=== PATIENT | male | born 1990 | race African-American/Black ===

== ENCOUNTER 2016-06-09 04:54 | Inpatient (IN) | payer OTHER ==
--- NOTE | ~2016-06-09 | PN ---
Unit #: [id number] #: [id number] Patient: BRANDY CERDA [id number] [facility] [address] [place] [address] [id number] MR#: [id number] NAME: BRANDY CERDA ROOM: P214 Age: 25 Sex: M Admission Date: 06/09/2016 : 1990 Attending Physician: Bess Calvo M.D. Admitting Physician: Bess Calvo M.D. Primary Care Physician: Hernando Doctor Not In System [facility] PROGRESS NOTES DATE 06/11/3016 DISCUSSION Mr. Cerda is a 35-year-old, male with mood disorder and substance abuse who was seen today and chart was reviewed and case was discussed with the staff. He has been anxious, withdrawn and rather seclusive to himself and has been exhibiting some persistent depressive symptoms. Meanwhile, he has been taking medications and tolerating them fairly well. MENTAL STATUS EXAM Young male who was casually dressed with fair personal hygiene, appears to be in no acute distress or discomfort. He was awake and alert on interaction with intact orientation. His mood was anxious with congruent affect. He denies any suicidal or homicidal ideation. His insight and judgement remains slightly impaired. TREATMENT PLAN 1. We will continue him on his current treatment protocol. We will monitor his response and make further adjustments as needed. 2. We will continue to follow up. Dictated by... Henry Sifuentes/isidoro TD: 06/13/2016 04:33 JOB #: [id number] Unit #: [id number] #: [id number] Patient: BRANDY CERDA [facility] PROGRESS NOTES Page 1 of 1 X Bess Calvo MD X PROGRESS NOTE
--- NOTE | ~2016-06-09 | HP ---
Unit #: [id number] #: [id number] Patient: BRANDY CERDA [id number] [facility] [address] [place] [address] [id number] MR#: [id number] NAME: BRANDY CERDA ROOM: P214 Age: 25 Sex: M Admission Date: 06/09/2016 : 1990 Attending Physician: Bess Calvo M.D. Admitting Physician: Bess Calvo M.D. Primary Care Physician: Generic Doctor Not In System HISTORY AND PHYSICAL HISTORY OF PRESENT ILLNESS The patient is a 25-year-old male who states that he is here due to Xanax abuse. PAST MEDICAL HISTORY Significant for asthma. PAST SURGICAL HISTORY None. ALLERGIES Patient states are seasonal. SOCIAL HISTORY Positive for smoking, alcohol, Xanax and marijuana. FAMILY HISTORY Noncontributory. REVIEW OF SYSTEMS CONSTITUTIONAL: No fever or chills. HEENT: Denies any sore throat, ear pain or runny nose. CARDIOVASCULAR: Denies chest pain, irregular heart rhythm or palpitations. CHEST: Denies shortness of breath or cough. No hemoptysis. GASTROINTESTINAL: Denies nausea, vomiting, diarrhea or chronic constipation. ENDOCRINE: Denies history of increased thirst or urination. No recent significant weight loss or gain. GENITOURINARY: Denies dysuria, frequency, or hematuria. SKIN: Denies any rashes. HEMATOLOGIC: Denies history of increased bleeding or bruising. MUSCULOSKELETAL: Denies any hot, swollen joints. No generalized muscle pain. NEUROLOGIC: Denies problems with vision or speech. No frequent, severe headaches. No numbness, tingling or weakness in any extremities. Denies loss of bladder or bowel control. CURRENT MEDICATIONS None. PHYSICAL EXAMINATION GENERAL: Alert, oriented, in no acute distress. VITAL SIGNS: Temperature 98, heart rate 78, respirations 16, blood Unit #: [id number] #: [id number] Patient: BRANDY CERDA pressure 103/60. HEIGHT: 5 feet 7 inches. WEIGHT: 130 pounds. SKIN: Warm and dry without rash or lesion. Tattoos to the right and left arms, midline chest. HEENT: Normocephalic. TMs not viewed. Oral and nasal passages clear. Conjunctivae clear. PERRLA. EOMs intact. NECK: Supple without lymphadenopathy or thyromegaly. HEART: Regular rate and rhythm without murmur. LUNGS: Clear. ABDOMEN: Soft, nontender, without masses or hepatosplenomegaly. : Not done. EXTREMITIES: No evidence of cyanosis, clubbing or edema. Moves all without focal deficit. NEUROLOGICAL: Grossly within normal limits. Cranial Nerves: II: Visual cordero are intact. III, IV AND : Extraocular movements are intact. Pupils are equal, round and reactive to light. V: Facial sensation is grossly normal. VII: Facial movements and expression are normal. VIII: Auditory acuity grossly intact. IX, X: Uvula is midline. Phonation is normal. XI: Patient shrugs shoulders and turns head normally. XII: Tongue protrudes in the midline. Sensory and Motor Function: Sensory and motor sensation is grossly normal. Motor: moves all extremities well. Coordination: Gait is normal. Deep Tendon Reflexes: Intact. IMPRESSION Psychiatric admission. RECOMMENDATIONS PSYCHIATRIC: Per psychiatrist. MEDICAL: No contraindications to participate in facility's activities. MEDICAL PROGNOSIS Good. Dictated by... Vadim Gaming/bernard TD: 06/09/2016 18:53 JOB #: [id number] HISTORY AND PHYSICAL Page 1 of 1 X Keiry Marshall APR X HISTORY AND PHYSICAL
--- NOTE | ~2016-06-09 | DS ---
Unit #: [id number] #: [id number] Patient: BRANDY CERDA [id number] [facility] [address] [place] [address] [id number] I MR#: [id number] NAME: BRANDY CERDA ROOM: [facility] Age: 25 Sex: M Admission Date: 06/09/2016 : 1990 Discharge Date: 06/12/2016 Attending Physician: Bess Calvo M.D. Primary Care Physician: Generic Doctor Not In System DISCHARGE SUMMARY IDENTIFYING DATA Mr. Norwood is a 25-year-old male who was self-referred to the hospital. DISCHARGE DIAGNOSES Psychiatric: Opioid dependence, moderate and acute withdrawals; opioid-induced mood disorder. Medical: None. Stressors: Moderate psychosocial stressors. HISTORY OF PRESENT ILLNESS Please see initial psychiatric evaluation for details. PAST PSYCHIATRIC HISTORY Please see initial psychiatric evaluation for details. PAST MEDICAL HISTORY Please see initial psychiatric evaluation for details. HOSPITAL COURSE The patient was admitted to the adult chemical dependency unit at [facility] and was oriented to the hospital environment. Routine p.r.n. medications were initiated, and he was started back on his home medications and detox protocol was initiated as well. He was taking medications regularly and was seen to be showing very poor insight into his situation, constantly wanting to leave and was poorly motivated towards treatment; however, he was denying any suicidal ideations, intent, or plan and was not seen to be danger to self or anyone else and therefore, it was decided that he will be discharged home and will continue treatment on an outpatient basis. DISCHARGE MEDICATIONS None. DISCHARGE CONDITION Stable. PROGNOSIS Guarded. Dictated by... Bess Calvo M.D. Unit #: [id number] #: [id number] Patient: BRANDY CERDA IAA/modl TD: 06/12/2016 11:22 JOB #: [id number] DISCHARGE SUMMARY Page 1 of 1 X Bess Calvo MD X DISCHARGE SUMMARY
--- NOTE | ~2016-06-09 | PN ---
Unit #: [id number] #: [id number] Patient: BRANDY CERDA [id number] [facility] [address] [place] [address] [id number] MR#: [id number] NAME: BRANDY CERDA ROOM: P214 Age: 25 Sex: M Admission Date: 06/09/2016 : 1990 Attending Physician: Bess Calvo M.D. Admitting Physician: Henry Sifuentes PROGRESS NOTES DATE OF SERVICE: 06/10/2016 SUBJECTIVE Mr. Cerda is a 25-year-old male who was seen today and chart was reviewed, and case was discussed with the staff. He has been anxious, irritable, and showing poor insight into his situation and poor motivation towards sobriety. Meanwhile, he has been taking the medications and has been tolerating them fairly well. MENTAL STATUS EXAMINATION Young male who was casually dressed with fair personal hygiene, appears to be in no acute distress or discomfort. He was awake and alert on interaction with intact orientation. His mood was anxious with a congruent affect. He denies any suicidal or homicidal ideations. His insight and judgment remain slightly impaired. TREATMENT PLAN 1. We will continue him on his current treatment protocol. We will monitor his response to medications and make further adjustments as needed. 2. We will continue to follow up. Dictated by... Henry Sifuentes/niko TD: 06/11/2016 12:36 JOB #: [id number] [facility] PROGRESS NOTES Page 1 of 1 X Bess Calvo MD PROGRESS NOTE
--- NOTE | ~2016-06-09 | PA ---
Unit #: [id number] #: [id number] Patient: BRANDY CERDA [id number] [facility] [address] [place] [address] [id number] MR#: [id number] NAME: BRANDY CERDA ROOM: P214 Age: 25 Sex: M Admission Date: 06/09/2016 : 1990 Date of Assessment: Attending Physician: Bess Calvo M.D. Admitting Physician: Bess Calvo M.D. Primary Care Physician: Hernando Doctor Not In System PSYCHIATRIC ASSESSMENT DATE OF SERVICE 06/09/2016. IDENTIFYING DATA Mr. Michelle is a 25-year-old single male, who is a resident of [place], [place], and was self-referred to the hospital on a voluntary basis. CHIEF COMPLAINT "I'm addicted to Xanax." HISTORY OF PRESENT ILLNESS Mr. Cerda is a 25-year-old male, who was self-referred to the hospital. Upon presentation, he stated that he is addicted to Xanax and reports that he takes 10 bars of Xanax 1 to 2 mg each, with last use yesterday and reports 3 previous seizures from attempted withdrawal from Xanax on his own and he occasionally takes 1 to 2 Lortab 3 to 4 times a month and his last use was yesterday. He reports that he drinks half a pint of Lily 3 to 4 times a week and reports he had a shot of Lily yesterday and he smokes 2 to 3 g of cannabis on a daily basis and last use was 1 g today and reports that his life is out of control and he reports increasing depression, anxiety, irritability, inability to function or perform activities of daily living, feelings of hopelessness and helplessness, and suicidal ideation with a plan to overdose on pills and as such, a recommendation for inpatient level of care for safety and stabilization was made and the patient was stepped up to the inpatient unit. SUBSTANCE ABUSE HISTORY The patient has had a history of alcohol, cannabis, opioids, and benzodiazepine abuse, though currently benzodiazepines has been his drug of choice. PAST PSYCHIATRIC HISTORY The patient has not had any prior inpatient or outpatient psychiatric or chemical dependency treatment. Review of the medical records indicate that currently he is not active in any treatment program, is not seeing a psychiatrist, and is not taking any psychotropic medications. PAST MEDICAL HISTORY Significant for history of withdrawal seizures and asthma. ALLERGIES Unit #: [id number] #: [id number] Patient: BRANDY CERDA No known medication allergies. PERSONAL AND SOCIAL HISTORY A 25-year-old male, who reports that he is single, unemployed, and is a resident of [place], [place], and has fairly decent social support system. MENTAL STATUS EXAMINATION Young male, who was casually dressed with fair personal hygiene, appears to be in no acute distress or discomfort. He was awake and alert on interaction with intact orientation. His mood was anxious and depressed with a congruent affect. His speech was slow and restricted in content. His thought processes were disorganized with some looseness of associations and paranoid ideations. His insight and judgment remain significantly impaired. DIAGNOSTIC IMPRESSION Psychiatric: Benzodiazepine dependence, moderate, in acute withdrawals; alcohol abuse, moderate; cannabis abuse, moderate; and opioid abuse, moderate. Medical: None. Stressors: Moderate psychosocial stressors. TREATMENT PLAN 1. The patient has presented with a history of substance abuse and mood disorder and has been decompensating and will need inpatient hospitalization for detoxification, safety, and stabilization. We will start him back on his home medications and we will adjust the medications and monitor response. 2. Supportive therapy was provided to the patient. 3. Safe, structured, and nourishing environment will be provided. ESTIMATED LENGTH OF STAY 5 to 7 days. ABILITY TO HELP SELF Limited. WILLINGNESS TO HELP SELF The patient appears to be willing to help self. STRENGTHS 1. Communicative. 2. Cooperative. PROBLEMS 1. Chronic dysphoric symptoms. 2. Chronic chemical dependency. 3. Poor social support system. DISCHARGE CRITERIA This will be contingent upon the patient's ability to show resolution of his depression and anxiety and psychosis and his ability to stay safe to himself, particularly after discharge from the program. Dictated by... Bess Calvo M.D. Unit #: [id number] #: [id number] Patient: BRANDY CERDA IAA/modl TD: 06/09/2016 16:58 JOB #: [id number] PSYCHIATRIC ASSESSMENT Page 1 of 1 X Bess Calvo MD PSYCHIATRIC ASSESSMENT
[~2016-06-09 04:54] MED LIST: ALBUTEROL INH; AMOXIL500 M1 PO; PREDNISONE PO
[2016-06-10 16:03] LABS: BASOPHIL% 0.6 % (0-2.5); EOSINOPHIL# 0.2 X10e3 (0-0.7); EOSINOPHIL% 3.5 % (0.0-7.0); HEMATOCRIT 46.4 % (38.0-50.0); HEMOGLOBIN 15.4 gm/dL (13.0-16.0); LYMPHOCYTE# 1.6 X10e3 (1.0-3.5); LYMPHOCYTE% 25.3 % (17.0-45.0); MEAN CELL VOLUME 94.2 FL (83-96); MEAN CORPUSCULAR HEMOGLOBIN 31.2 PG (28-34); MEAN CORPUSCULAR HGB CONC 33.1 g/dL (30-36); MEAN PLATELET VOLUME 8.9 FL (6.5-11.5); MONOCYTE# 0.4 X10e3 (0-1.0); MONOCYTE% 6.8 % (3.0-12.0); NEUTROPHIL# 4.1 X10e3 (1.5-7.1); NEUTROPHIL% 63.8 % (40-75); PLATELET COUNT 170 X10e3 (140-420); RED BLOOD COUNT 4.93 X10e (3.90-5.60); RED CELL DISTRIBUTION WIDTH 13.2 % (11.0-15.5); WHITE BLOOD COUNT 6.4 X10e3 (4.0-10.5)
[2016-06-10 16:04] LABS: DIFF IND NO
[2016-06-10 16:21] LABS: THYROID STIMULATING HORMONE 0.65 uIU/ml (0.34-5.60)
[2016-06-10 16:28] LABS: FREE THYROXIN (T4) 0.65 ng/dL (0.58-1.64)
[2016-06-10 16:37] LABS: ALBUMIN SERUM 4.3 g/dL (3.5-5.0); BILIRUBIN,TOTAL 0.6 mg/dL (0.2-2.0); BUN/CREATININE RATIO 8.88; CALCIUM SERUM 9.6 mg/dL (8.4-10.2); CREATININE SERUM 0.9 mg/dL (0.6-1.4); GLOM FILT RATE Estimated 137.1 mL/min (>60); POTASSIUM 3.8 mmol/L (3.5-5.1); PROTEIN TOTAL SERUM 7.3 g/dL (6.0-8.3)
[2016-06-12 09:42] LABS: URINE APPEARANCE CLEAR; URINE BILIRUBIN NEG (NEG); URINE BLOOD NEG (NEG); URINE COLOR YELLOW; URINE GLUCOSE NEG (NEG); URINE KETONE NEG (NEG); URINE LEUKOCYTE ESTERASE NEG (NEG); URINE NITRATE NEG (NEG); URINE PROTEIN NEG (NEG); URINE SPECIFIC GRAVITY 1.011 (1.003-1.035); URINE UROBILINOGEN 0.2 MG/DL (NEG)
[2016-06-12 10:14] LABS: AMPHETAMINE NEG (NEG); BARBITURATES NEG (NEG); BENZODIAZEPINES POS (NEG); COCAINE NEG (NEG); MARIJUANA POS (NEG); OPIATES NEG (NEG); TRICYCLIC ANTIDEPRESSANTS NEG (NEG); U METHADONE NEG (NEG)
== END 2016-06-12 09:54 | DRG 897 ==
LOC: P2S 04:54
PROVIDERS: Psychiatry & Neurology Psychiatry
PROC: HZ2ZZZZ Detoxification Services for Substance Abuse Treatment (ICD-10-PCS; principal; 2016-06-09)
DX: F11.23 Opioid dependence with withdrawal (principal); F11.24 Opioid dependence with opioid-induced mood disorder; F13.230 Sedative, hypnotic or anxiolytic dependence with withdrawal, uncomplicated; F10.10 Alcohol abuse, uncomplicated; F12.10 Cannabis abuse, uncomplicated; J45.909 Unspecified asthma, uncomplicated; F17.210 Nicotine dependence, cigarettes, uncomplicated
CPT/HCPCS: 80053; 80307; 81003; 84439; 84443; 85025; 86592